=== PATIENT | female | born 2000 | race African-American/Black ===

== ENCOUNTER 2020-04-08 05:51 | Emergency (ER) | payer OTHER ==
[~2020-04-08] VITALS: Ht 185.4 cm; Wt 76.9 kg
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
--- NOTE | 2020-04-08 07:05 | NUR ---
RECEIVED REPORT FROM MURRAY TURPIN. PT U[facility]IGHT ON [facility], WITH C-COLLAR ON, TALKING ON CELL PHONE, LAUGHING. NO NEEDS AT THIS TIME. CALL LIGHT WITHIN REACH.
--- NOTE | 2020-04-08 08:00 | NUR ---
PT LAYING ON GURNEY SLEEPING COMFORTABLY, SUPPL O2 PLACED FOR DESAT DURING SLEEP- ERP AWARE, C-COLLAR REMOVED PER ERP WITH OTHER COMFORT MEASURES PROVIDED, CALL LIGHT WITHIN REACH.
--- NOTE | 2020-04-08 09:10 | NUR ---
PT RETURNED FROM MRI, BACK TO SLEEP ON [place], COMFORTABLY RESTING, NAD, NO NEEDS AT THIS TIME, CALL LIGHT WITHIN REACH.
[2020-04-08 10:14] VITALS: BP 110/62
--- NOTE | 2020-04-08 10:35 | NUR ---
PT GIVEN DC INSTRUCTIONS & RX, VERBALIZES UNDERSTANDING, ALSO PROVIDED PANTS & BLANKET FOR DC, PT OFFERED TAXI VOUCHER IF NEEDED- REFUSED AT THIS TIME, PT AMBULATORY WITH STEADY GAIT TO DC DESK WHILE AWAITING FOR RIDE.
== END 2020-04-08 10:59 | disposition home or self-care (01) ==
LOC: ED 06:41
DX: S16.1XXA Strain of muscle, fascia and tendon at neck level, initial encounter (principal); G89.11 Acute pain due to trauma; M54.5 Low back pain; M54.6 Pain in thoracic spine; V89.2XXA Person injured in unspecified motor-vehicle accident, traffic, initial encounter; Y93.89 Activity, other specified; Y92.098 Other place in other non-institutional residence as the place of occurrence of the external cause; Y99.8 Other external cause status
CPT/HCPCS: 70450; 72072; 72110; 72125; 72141; 99285